=== PATIENT | male | born 1945 | race Caucasian/White ===

== ENCOUNTER → 2017-04-21 | Outpatient (CLI) | payer OTHER, MEDICARE | LOC: CIMAGING 08:02 | PROVIDERS: ATTEND Orthopaedic Surgery Orthopaedic Surgery of the Spine | DX: M53.3 Sacrococcygeal disorders, not elsewhere classified (principal); M99.73 Connective tissue and disc stenosis of intervertebral foramina of lumbar region; Z98.1 Arthrodesis status | CPT/HCPCS: 72192-PO ==

== ENCOUNTER → 2018-08-17 | Outpatient (CLI) | payer OTHER, MEDICARE | LOC: FIMAGING 11:43 | PROVIDERS: ATTEND Orthopaedic Surgery | DX: Z01.818 Encounter for other preprocedural examination (principal); M17.11 Unilateral primary osteoarthritis, right knee; M25.461 Effusion, right knee; M23.41 Loose body in knee, right knee ==

== ENCOUNTER 2018-09-09 06:00 | Inpatient (IN) | payer OTHER, MEDICARE ==
[2018-09-09] MEDS ORDERED: ACETAMINOPHEN 325 MG TAB PO ONE (06:06)
[2018-09-09] MEDS ORDERED: FAMOTIDINE 20 MG TAB PO ONE (06:06)
[2018-09-09] MEDS ORDERED: DEXAMETHASONE 4 MG/ML VIAL IVP ONE (06:06)
[2018-09-09] MEDS ORDERED: ceFAZolin 2 GM/DEXTROSE 100 ML IV ONE (06:06)
--- NOTE | 2018-09-09 06:20 | PDHPUP ---
History & Physical Update H&P update statement: This history and physical update is based on an assessment of the patient which was completed after admission or registration (within 24 hours), but prior to the surgery/procedure. H&P update: H&P reviewed & patient examined, no change in patient's condition since H&P completed
[2018-09-09] MEDS ORDERED: TRANEXAMIC ACID 3,000 MG/50 ML BAG IRR ONE (06:37)
[2018-09-09] MEDS ORDERED: LIDOCAINE 1% 2 ML INJ ONE (06:43)
[2018-09-09] MEDS ORDERED: LR 1,000 ML IV ONE (06:50)
[2018-09-09] MEDS ORDERED: LIDOCAINE 1% 2 ML INJ ID PRN (06:50)
[2018-09-09] MEDS ORDERED: MIDAZOLAM 2 MG/2 ML VIAL IVP ONE (07:30)
--- NOTE | 2018-09-09 07:32 | PDANEPAE ---
ANE History of Present Illness tka ANE Past Medical History - Cardiovascular History Hx Hypertension: Yes Hx Arrhythmias: No Hx Chest Pain: No Hx Coronary Artery / Peripheral Vascular Disease: No Hx CHF / Valvular Disease: No Hx Palpitations: No - Pulmonary History Hx COPD: No Hx Asthma/Reactive Airway Disease: No Hx Recent Upper Respiratory Infection: No Hx Oxygen in Use at Home: No Hx Sleep Apnea: No Sleep Apnea Screening Result - Last Documented: Positive - Neurologic History Hx Cerebrovascular Accident: No Hx Seizures: No Hx Dementia: No - Endocrine History Hx Diabetes: No Hypothyroid: No Hyperthyroid: No Obesity: no - Renal History Hx Renal Disorders: No - Liver History Hx Hepatic Disorders: No - Neurological & Psychiatric Hx Hx Neurological and Psychiatric Disorders: No - Cancer History Hx Cancer: No - Congenital Disorder History Hx Congenital Disorders: No - GI History GERD: mild Hx Gastrointestinal Disorders: No Gastrointestinal History Comment: acid reflux - Other Health History Other Health History: [place] - Chronic Pain History Chronic Pain: Yes (R shoulder,back,L) - Surgical History Prior Surgeries: cervical/lumbar fusion x 2. SIjoint fusion x 2. R shoulder repair x 3. L shoulder repair x1. hernia repair. lasik eye surgery. Rknee scope x4. L knee x 1. L&R foot surgery ANE Review of Systems Review of Systems: - Exercise capacity Exercise capacity: >=4 METS METS (RN): 6 METS ANE Patient History - Allergies Allergies/Adverse Reactions: No Known Allergies Allergy (Verified 08/18/18 11:01) - Home Medications Home medications: home medication list seen and reviewed Home Medications: Dexlansoprazole [Dexilant] 60 mg PO DAILY PRN 08/18/18 [Last Taken 09/08/18] Diclofenac Sodium [Voltaren 75 MG (*)] 75 mg PO BID PRN 08/18/18 [Last Taken ] Escitalopram Oxalate [Lexapro] 20 mg PO DAILY 08/18/18 [Last Taken 09/08/18] Ferrous Sulfate [Ferrous Sulf 325 MG (*)] 325 mg PO DAILY 08/18/18 [Last Taken 08/26/18] Lisinopril [Zestril 20 mg (*)] 20 mg PO DAILY 08/18/18 [Last Taken 09/08/18] Multivitamins [Multivitamin (*)] 1 each PO DAILY 08/18/18 [Last Taken 09/07/18] Rosuvastatin Calcium [Crestor 20mg (*)] 20 mg PO DAILY 08/18/18 [Last Taken 02/17] Temazepam [Restoril 15 MG (*)] 15 mg PO HS 08/18/18 [Last Taken 09/08/18] - NPO status NPO Status: no food or drink >8 hours NPO Since - Liquids (Date): 09/08/18 NPO Since - Liquids (Time): 22:00 NPO Since - Solids (Date): 09/08/18 NPO Since - Solids (Time): 22:00 - Smoking Hx Smoking Status: Never smoked - Family Anes Hx Family Hx Anesthesia Complications: none ANE Labs/Vital Signs - Vital Signs Blood Pressure: 119/85 Heart Rate: 67 Respiratory Rate: 16 O2 Sat (%): 95 Height: 182.88 cm Weight: 88.451 kg ANE Physical Exam - Airway Mallampati Score: Class 2 Mouth exam: normal dental/mouth exam - Pulmonary Pulmonary: no respiratory distress - Cardiovascular Cardiovascular: regular rate and rhythym - ASA Status ASA Status: II ANE Anesthesia Plan Anesthesia Plan: spinal Regional Anesthesia: adductor canal FNB
[2018-09-09] MEDS ORDERED: PROPOFOL/EMULSION 500 MG/50 ML BOTTLE IV ONE ×2 (07:48→08:34)
[2018-09-09] MEDS ORDERED: LIDOCAINE 2% 5 ML SDV ONE (07:50)
[2018-09-09] MEDS ORDERED: ROPIVACAINE 0.2% 80 MG, EPINEPHrine 0.2 MG, KETOROLAC TROMETHAMINE 30 MG in SYRINGE 0 ML IU ONE (08:00)
[2018-09-09] MEDS ORDERED: TRANEXAMIC ACID 3,000 MG in NS (SYRINGE) 50 ML IRR ONE (08:00)
[2018-09-09] MEDS ORDERED: fentaNYL 100 MCG/2 ML INJ ONE (08:33)
[2018-09-09] MEDS ORDERED: ROPIVACAINE HCL 100 MG/20 ML INJ ONE (08:38)
[2018-09-09] MEDS ORDERED: ONDANSETRON 4 MG/2 ML VIAL ONE (08:57)
[2018-09-09] MEDS: BUPIVACAINE 0.25% 30 ML SDV ONE ×2 (09:06→11:57)
[2018-09-09] MEDS ORDERED: PROPOFOL 200 MG/20 ML VIAL ONE ×2 (09:19→09:41)
[2018-09-09] MEDS ORDERED: HYDROmorphONE/DILAUDID 2 MG/ML INJ IVP PRN (09:20)
[2018-09-09] MEDS ORDERED: HYDROCODONE/APAP 5/325 TAB PO PRN (09:20)
[2018-09-09] MEDS ORDERED: fentaNYL 100 MCG/2 ML INJ IVP PRN (09:20)
[2018-09-09] MEDS ORDERED: LR 500 ML IV PRN (09:20)
[2018-09-09] MEDS ORDERED: NALOXONE HCL 0.4 MG/ML INJ IVP PRN (09:20)
[2018-09-09] MEDS ORDERED: ALBUTEROL 3 ML DEYVIAL IH PRN (09:20)
[2018-09-09] MEDS ORDERED: ONDANSETRON 4 MG/2 ML VIAL IVP PRN ×2 (09:20→09:52)
[2018-09-09] MEDS ORDERED: ENALAPRILAT DIHYDRATE 1.25 MG/ML VIAL ONE (09:26)
[2018-09-09] MEDS ORDERED: LABETALOL HCL 5 MG/ML 20 ML MDV IVP PRN (09:45)
[2018-09-09] MEDS ORDERED: PROMETHAZINE HCL 25 MG/ML INJ IVP PRN (09:52)
[2018-09-09] MEDS ORDERED: PROMETHAZINE HCL 25 MG SUPPR PR PRN (09:52)
[2018-09-09] MEDS ORDERED: POLYETHYLENE GLYCOL 3350 17 GM PKT PO PRN (09:52)
[2018-09-09] MEDS ORDERED: LACTULOSE 20 GM/30 ML UDCUP PO PRN (09:52)
[2018-09-09] MEDS ORDERED: BISACODYL 10 MG SUPP PR PRN (09:52)
[2018-09-09] MEDS ORDERED: diphenhydrAMINE 25 MG CAP PO PRN (09:52)
[2018-09-09] MEDS ORDERED: MAGNESIUM HYDROXIDE 30 ML UDCUP PO PRN (09:52)
[2018-09-09] MEDS ORDERED: DIPHENOXYLATE/ATROPINE LOMOTIL 1 TAB PO PRN (09:52)
[2018-09-09] MEDS ORDERED: ONDANSETRON DISINTEGRATING 4 MG TAB PO PRN (09:52)
[2018-09-09] MEDS ORDERED: METOCLOPRAMIDE 10 MG/2 ML VIAL IVP PRN (09:52)
--- NOTE | 2018-09-09 09:52 | POSTOPPROG ---
Post Op Note Date of Operation: 09/09/18 Surgeon: Ursula Richter Vegetable Washer: Erica Richter and Parris Gomez PA-C Anesthesiologist: Dr. Montano Anesthesia: Spinal, Other (Specify) (adductor canal block) Pre-op Diagnosis: right knee OA Post-op Diagnosis: same Indication: right knee pain Procedure: right TKA Findings: severe OA of right knee Inf/Abcess present in the surg proc area at time of surgery?: No EBL: 50-100
[2018-09-09] MEDS ORDERED: LABETALOL HCL 5 MG/ML 20 ML MDV ONE (09:59)
[2018-09-09] MEDS ORDERED: LR 1,000 ML IV SCH (10:00)
--- NOTE | 2018-09-09 10:01 | POSTANESTH ---
Post Anesthetic Evaluation Cardiovascular Status: Normal, Stable Respiratory Status: Normal, Stable Level of Consciousness/Mental Status: Can Participate in Eval Pain Control: Adequate, Prn Tx Ordered Nausea/Vomiting Control: Adequate, Prn Tx Ordered Complications Possibly Related to Anesthesia: None Noted
[2018-09-09] MEDS ORDERED: PANTOPRAZOLE SODIUM 40 MG TAB PO PRN (11:15)
[2018-09-09] MEDS ORDERED: oxyCODONE IR 5 MG TAB ONE (11:41)
[2018-09-09] MEDS: oxyCODONE IR 5 MG TAB PO PRN ×5 (11:49→23:17)
[2018-09-09] MEDS: ACETAMINOPHEN 325 MG TAB PO SCH ×3 (12:34→23:17)
--- NOTE | 2018-09-09 12:45 | PDMN ---
Medical Necessity Medical necessity: Pt meets IP criteria as of 09/09/2018 per and [facility] S-700 (TKA ); est los > 2 mn for post op care and management of chronic conditions including anemia, HTN, advanced age and sleep disorder.
[2018-09-09] MEDS: ceFAZolin 2 GM/DEXTROSE 100 ML IV SCH ×2 (15:01→22:07)
[2018-09-09] MEDS ORDERED: CEPACOL LOZENGE PO ONE (18:28)
[2018-09-09] MEDS: CEPACOL LOZENGE PO PRN ×2 (18:30→20:32)
[2018-09-09] MEDS: CYCLOBENZAPRINE 10 MG TAB PO PRN (18:33)
[2018-09-09] MEDS: SENNOSIDES/DOCUSATE SODIUM TAB PO SCH (20:19)
[2018-09-09] MEDS: ASPIRIN 81 MG CHEWABLE TAB PO SCH (20:20)
[2018-09-09] MEDS: FAMOTIDINE 20 MG TAB PO SCH (20:20)
[2018-09-09] MEDS: TEMAZEPAM 15 MG CAP PO PRN ×2 (22:07→23:18)
[2018-09-10] MEDS: oxyCODONE IR 5 MG TAB PO PRN ×2 (04:19→09:13)
[2018-09-10] MEDS: ACETAMINOPHEN 325 MG TAB PO SCH (06:26)
[2018-09-10 08:13] VITALS: BP 119/75
[2018-09-10] MEDS ORDERED: FERROUS SULFATE 325 MG TAB PO SCH (09:00)
[2018-09-10] MEDS ORDERED: ROSUVASTATIN CALCIUM 20 MG TAB PO SCH (09:00)
[2018-09-10] MEDS ORDERED: LISINOPRIL 20 MG TAB PO SCH (09:00)
[2018-09-10] MEDS ORDERED: ESCITALOPRAM OXALATE 10 MG TAB PO SCH (09:00)
[2018-09-10] MEDS: FAMOTIDINE 20 MG TAB PO SCH (09:06)
[2018-09-10] MEDS: SENNOSIDES/DOCUSATE SODIUM TAB PO SCH (09:07)
[2018-09-10] MEDS: ASPIRIN 81 MG CHEWABLE TAB PO SCH (09:07)
[2018-09-10] MEDS: CYCLOBENZAPRINE 10 MG TAB PO PRN (09:07)
--- NOTE | 2018-09-10 10:10 | SOAPPROG ---
SOAP Progress Note Assessment/Plan: Assessment: Patient is doing well POD 1 s/p RTKA Pain management: pain is well controlled on oral pain meds. VTE ppx: recommend 81 mg aspirin morning and evening for 4 weeks, cont YOSI and SCDs Anemia: level is expected initially postop. Asymptomatic. Continue to monitor. Pt. does have hx of iron deficiency anemia. D/c planning: patient has done much better than anticipated. Patient is stable , BP stable, pain well controlled and patient is eager for discharge to home. May d/c to home today pending release from PT Plan: 09/10/18 10:08 Subjective: No nausea, vomiting, shortness of breath, chest pain. Pain well-controlled. Objective: Vital Signs Temp Pulse Resp BP Pulse Ox 36.7 C 57 L 16 119/75 93 09/10/18 08:00 09/10/18 08:00 09/10/18 08:00 09/10/18 08:00 09/10/18 08:00 Laboratory Results 09/10/18 04:55 09/09/18 09/10/18 09/11/18 05:59 05:59 05:59 Intake Total 3145 Output Total 950 Balance 2195 RLE: incision dressing clean and dry, positive DF/PF, NVI ICD10 Worksheet Patient Problems: Problems Problem Status Onset Primary osteoarthritis of right knee Acute
--- NOTE | 2018-09-10 11:26 | ASMTLACE ---
LACE Length of stay for Answers: 1 day current admission Acuity / Level of Answers: Yes Care: Did the patient have an inpatient admission? Comorbidities - select Answers: Opioid dependence all that apply / Chronic pain Other Notes: HTN # of Emergency department Answers: 0 visits in the last 6 months Score: 9 Date Signed: 09/10/2018 11:25 AM Electronically Signed By:SHAD Hill
--- NOTE | 2018-09-10 14:26 | ASMTDCNOTE ---
Case Management Discharge Discharge Order Complete? Answers: Yes Patient to Obtain Answers: via Family Medications Transportation Arranged Answers: Family/Friends Discharge Comments Notes: Pt is s/p R TKA. He has been cleared by PT and is discharging home today with his and no CM needs. Date Signed: 09/10/2018 02:26 PM Electronically Signed By:SHAD Hill
--- NOTE | 2018-09-10 15:04 | GOP ---
[f rep st] OPERATIVE REPORT DATE OF OPERATION: 09/10/2018 SURGEON: Damian Richter MD SHANK STITCHER: 1. FEROZ Jacob. 2. Chey Gomez P.A.-C. ANESTHESIA: Spinal. PREOPERATIVE DIAGNOSIS: Right knee osteoarthritis. POSTOPERATIVE DIAGNOSIS: Right knee osteoarthritis. PROCEDURE PERFORMED: Right total knee arthroplasty with computer navigation, robotic assist. FINDINGS: ESTIMATED BLOOD LOSS: 100 cc. INDICATIONS: The patient is a 73-year-old male with severe and progressive pain and deformity of the right knee unresponsive to conservative care. The risks and benefits of surgical intervention were explained in detail. DESCRIPTION OF PROCEDURE: The patient was brought to the operative room and placed on the table in t he supine position. Spinal anesthesia was induced without difficulty. A pneumatic tourniquet was appl ied about the right proximal thigh, and the leg was prepped and draped in a sterile fashion. The leg briscoe was applied. After exsanguination by elevation the tourniquet was inflated to 250 mmHg. Incision was made anterior medial from the tibial tuberosity to a point 2 cm proximal to the superior pole of the patella. Medial parapatellar arthrotomy was carried out from the superior pole of the pa tella and posteriorly in line with the fibers of the Type II VMO. The medial collateral ligament was elevated and the infrapatellar fat pad was resected. The patella was everted and the articular surface was excised. A 40 mm patellar button was placed. Attention was turned first to the distal aspect of the femur. After exposure of the femur, 2 half pi ns were placed for fixation of the femoral array. In a similar fashion, 2 pins were placed anteromed ial on the tibia for fixation of the tibial array. External land marking and registration of the hip center was performed without difficulty. Internal femoral and tibial registration was carried out w ithout difficulty and the femoral and tibial checkpoints were placed and verified for accuracy. Attention was turned to the femur. The foot print for the size 7 femoral component was cut with the saw using the Self-A-r-T robotic system and verified for accuracy against the CT based plan. In a similar f ashion, the saw was used to cut the footprint for the size 7 tibial component using the JANAK system an d verified for accuracy against the CT based plan. The tibial articular surface was excised without d ifficulty, followed by the intercondylar box cut. The knee was extended and the remnants of the medial and lateral meniscus were excised. The posterior capsule was injected with ropivacaine, epinephrine and Toradol. A size 7 tibial tray was positioned . Trial reduction was then carried out. There was excellent range of motion, alignment, and stability using the 7 x 9 mm polyethylene. All trials were then removed. The joint was thoroughly irrigated and carefully dried. The press-fit c omponents were implanted. The permanent 7 x 9 mm polyethylene was placed without difficulty. The tourniquet was deflated and all bleeders were coagulated. The wound was thoroughly irrigated and closed using interrupted sutures of 2-0 Vicryl for the joint capsule. The subcu was closed with 3-0 V icryl and the skin with 4-0 Monocryl. Dermabond and Steri-Strips were applied followed by a compress xiao dressing. The patient was then moved from the operating room to the recovery room in good conditi on, having tolerated the procedure well. PATHOLOGY: Severe tricompartmental osteoarthritis. /[id number]/MODL
--- NOTE | 2018-09-10 19:06 | GDS ---
[f rep st] DISCHARGE SUMMARY ADMISSION DIAGNOSIS: Right knee osteoarthritis. DISCHARGE DIAGNOSIS: Right knee osteoarthritis. PROCEDURE: Right total knee arthroplasty, robot-assisted. VTE PROPHYLAXIS: Recommend aspirin 81 mg twice daily for 4 weeks. BRIEF DESCRIPTION OF HOSPITAL STAY: Patient was admitted for an elective joint arthroplasty. The pat ient tolerated the procedure well and has passed physical therapy. The patient was given appropriate antibiotic prophylaxis and venous thromboembolism prophylaxis. The patient's pain was well controlled on oral pain medication, patient was holding down food, and had urinated. Decision was made to disch arge the patient. The patient was given post-operative prescriptions pre-operatively. PLAN: Followup scheduled with Dr. Richter's office on September 29 at 10 a.m. /[id number]/MODL
== END 2018-09-10 11:47 | disposition home or self-care (01) | DRG 470 ==
LOC: F3N 06:00
PROVIDERS: ADMIT Orthopaedic Surgery; ATTEND Orthopaedic Surgery
DX: M17.11 Unilateral primary osteoarthritis, right knee (principal); D50.9 Iron deficiency anemia, unspecified; I10 Essential (primary) hypertension; K21.9 Gastro-esophageal reflux disease without esophagitis
CPT/HCPCS: 97116-GP; 97161-GP; J0171; J0690; J1100; J1885; J2250; J2405; J2704; J2795; J3010